=== PATIENT | female | born 2005 | race Caucasian/White ===

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

== ENCOUNTER 2024-05-30 10:36 | Outpatient (POV) | payer OTHER, SELFPAY | END 2024-05-30 23:59 | disposition home or self-care (01) | LOC: SC 10:37 | PROVIDERS: Visit Provider Specialist/Technologist | DX: Z00.00 Encounter for general adult medical examination without abnormal findings (principal) ==

== ENCOUNTER 2024-10-16 10:43 | Outpatient (CLI) | payer OTHER, SELFPAY ==
[2024-10-16 14:07] LABS: Basophils # 0.1 K/mm3 (0-0.2); Basophils % 0.8 % (0.1-2.0); Eosinophils # 0.2 Kmm3 (0.0-0.4); Eosinophils % 2.3 % (0.1-12.0); Hematocrit 43.7 % (37.0-47.0); Immature Granulocytes # 0.01 10^3uL; Immature Granulocytes % 0.2 %; Lymphocytes # 3.1 K/mm3 (0.7-4.5); Lymphocytes % 47.1 % (10-50); Mean Corpuscular HGB Conc 34.3 g/dL (31.8-35.4); Mean Corpuscular Hemoglobin 34.3 pg (27.0-31.2); Mean Platelet Volume 12.5 fl (7.4-10.4); Monocytes # 0.8 K/mm3 (0.1-1.0); Monocytes % 11.5 % (1.7-9.3); Neutrophils # 2.5 K/mm3 (1.8-7.8); Neutrophils % 38.1 % (37.0-80.0); Nucleated Red Blood Cells # 0 10^3/uL; Nucleated Red Blood Cells % 0 %; Platelet Count 194 K/mm3 (142-424); Red Blood Count 4.37 M/mm3 (4.20-5.40); Red Cell Distribution Width 11.9 % (11.5-17.5); Red Cell Distribution Width-SD 43.3 fL; White Blood Count 6.6 K/mm3 (4.5-13.0)
[2024-10-16 15:30] LABS: Albumin Level 4.6 g/dl (3.5-5.0); Chloride 106 mmol/L (98-107); Potassium 4.4 mmoL/L (3.5-5.1); Sodium 138 mmol/L (136-145)
[2024-10-16 15:33] LABS: Alanine Aminotransferase 33 U/L (12-78); Alkaline Phosphatase 88 U/L (38-126); Anion Gap 10.4 mEq/L (5-15); Aspartate Amino Transferase 32 U/L (14-36); Bilirubin,Total 0.5 mg/dl (0.2-1.3); Blood Urea Nitrogen 11 mg/dl (7-17); Carbon Dioxide 26 mmol/L (22.0-30.0); Cholesterol 195 mg/dl (140-200); Estimated Glomerular Filt Rate 107 ml/min (>60); GFR (African American) 129 ML/MIN (>60); Globulin 2.3 g/dL (1.3-3.2); Glucose 91 mg/dl (74-100); Total Protein,Serum 6.9 g/dl (6.3-8.2); Triglycerides 174 mg/dl (30-150); VLDL Cholesterol 35 mg/dL (0-40)
[2024-10-16 15:34] LABS: Calcium 9.7 mg/dl (8.4-10.2); Chol/HDL Ratio 4.9 (1-3.5); HDL Cholesterol 40 mg/dl (40-60); Magnesium 1.8 mg/dl (1.6-2.3)
[2024-10-16 15:43] LABS: 25-OH Vitamin D, Total 40.2 ng/mL (30-100)
[2024-10-16 15:45] LABS: Direct LDL Cholesterol 126.27 mg/dL (100-129)
[2024-10-16 16:06] LABS: Thyroid Stimulating Hormone 2.15 uIU/mL (0.465-4.68)
[2024-10-16 16:10] LABS: Ferritin 18.7 ng/ml (6.24-137)
[2024-10-16 16:23] LABS: Vitamin B12 256 pg/mL (239-931)
[2024-10-16 20:28] LABS: Hemoglobin A1C 5.4 % (4.0-6.0)
[2024-10-17 10:12] LABS: Insulin Level Total 34.7 uIU/mL (2.6-24.9)
== END 2024-10-16 23:59 | disposition home or self-care (01) ==
LOC: LAB.DROPOF 22:51
PROVIDERS: PCP Nurse Practitioner Family; Visit Provider Nurse Practitioner Family
DX: E28.2 Polycystic ovarian syndrome (principal); E53.8 Deficiency of other specified B group vitamins; D50.8 Other iron deficiency anemias; R63.5 Abnormal weight gain; Z68.35 Body mass index [BMI] 35.0-35.9, adult
CPT/HCPCS: 80053; 80061; 82306; 82607; 82728; 83036; 83525; 83735; 84443; 85025

== ENCOUNTER 2024-12-28 18:54 | Outpatient (CLI) | payer OTHER, SELFPAY ==
--- OUTSIDE RECORDS SUMMARY | 2024-12-28 18:59 | XMS_ITS | Clinical Summary ---
Author Organization [facility] Address [address] [place] [id number] Care Team Providers Care Wreath Maker Name Role Phone Raj Fitzgerald M.D. Primary Care Provider [phone] Source Comments [facility] is fully rolled out with thefollowing exceptions:General Clinical Research [facility] Allergies Active Allergy Reactions Criticality Noted Date Comments Apple Rash 02/27/2012 Eggs Or Egg-Derived Products Other 012 Tree Extract Rash 02/27/2012 Tree nuts Medications montelukast (SINGULAIR) 5 MG chewable tablet Take 5 mg by mouth 1 time daily. Active fluticasone propionate (FLONASE) 50 MCG/ACT nasal spray Give 1 [place] into each side of nose 1 time daily. Active Pediatric Multiple Vit-C-FA (CHILDRENS MULTIVITAMIN) WITH C & FA chewable tablet Take 1 Tab by mouth 1 time daily. Active acetaminophen (TYLENOL) 160 MG/5ML suspension Take 19 mL (608 mg total) by mouth every 4 hours as needed for pain or fever (mild). 118 mL 1 3 Active ibuprofen (MOTRIN) 100 MG/5ML suspension Take 20 mL (400 mg total) by mouth every 8 hours as needed for pain (moderate). 240 mL 2 3 Active ciprofloxacin (CILOXAN) 0.3 % ophthalmic solutionIndicat ions:Empiric treatment Use 4 drops two times daily for 7 days to affected ear(s) 1 Bottle 0 3 Active Additional Information Patient not taking.Reported on 10/14/2021 Norethin-Eth Estrad-Fe Biphas (LO LOESTRIN FE PO) Take 1 Tab by mouth 1 time a day. Active Active Problems Problem Noted Date Diagnosed Date Dizziness 12/31/2014 Flow murmur 12/31/2014 Undiagnosed cardiac murmurs 12/30/2014 Obesity 03/13/2014 Attention deficit disorder without mention of hy peractivity 10/26/2012 Normal pubertal progression 05/15/2012 Premature thelarche 02/27/2012 Resolved Problems Problem Noted Date Diagnosed Date Resolved Date Overweight(278.02) 02/27/2012 4 Family History Medical History Relation Name Comments Arthritis, Rheumatoid Father Obstructive Sleep Apnea Father Arrhythmia Maternal Grandfather Arthritis, Rheumatoid Maternal Grandfather Coronary Artery Disease Maternal Grandfather Heart Attack Maternal Grandfather Heart Disease Maternal Grandfather Multip le heart attacks (7 AK's and 17 stents) High Cholesterol Maternal Grandfather Hypertension Maternal Grandfather Hyperthyroidism Maternal Grandfather Hypothyroidism Maternal Grandfather ICD (Defibrillator) Maternal Grandfather Myocardial Infarction Maternal Grandfather 1st AK at age of 35 (7 AK's and 17 stents placed) Pacemaker Maternal Grandfather Arthritis, Rheumatoid Maternal Grandmother Diabetes Type 1 Maternal Grandmother Hypertension Maternal Grandmother Osteoporosis Maternal Grandmother Arthritis, Rheumatoid Mother Heart Block Mother Hypothyroidism Mother Irregular Menses Mother Polycystic Ovary Syndrome Mother Thyroid Disease Mother Crohn's Disease Paternal Aunt Arthritis, Rheumatoid Paternal Grandfather Coronary Artery Disease Paternal Grandfather Heart Attack Paternal Grandfather Heart Disease Paternal Grandfather High Cholesterol Paternal Grandfather Hypertension Paternal Grandfather Myocardial Infarction Paternal Grandfather Arthritis, Rheumatoid Paternal Grandmother Hypertension Paternal Grandmother Mitral valve prolapse Paternal Grandmother Anxiety Sister Kornelia In behavioral m anagement sessions Asthma Sister Kornelia Early Puberty Sister Kornelia Premature adre narche Obstructive Sleep Apnea Sister Kornelia Relation Name Status Comments Father Alive Maternal Grandfather Alive Maternal Grandmother Alive Mother Alive Paternal Aunt Paternal Grandfather (Age 50) He art disease Paternal Grandmother Alive Sister Kornelia Alive Social History Tobacco Use Types Packs/Day Years Used Date Smoking Tobacco: Never Smokeless Tobacco: Never Intimate Partner Violence Answer Date R ecorded If you are in a relationship , do you feel safe in that relationship? Yes 10/14/2021 Safe in relationship? (18 and older) Not on file 10/14/2021 Safety and Environment Answer Date Abdirahman rded Do you have any concerns of physical abuse, sexual abuse, or neglect of your child? No 10/14/2021 Is an adult hurting you or your family? No 10/14/2021 Has someone ever touched you in a sexual way that was not ok with you? No 10/14/2021 Someone hurting you or family (18 and older) Not on file 10/14/2021 Historical abuse worry Not on file If you have firearms in the home, are they all in locked storage AND unloaded? Not on file 10/14/2021 Comments Unknown Sex and Gender Information Value Date Recorded Sex Assigned at Not on file Legal Sex Female 5:38 AM EST Gender Identity Not on file Sexual Orientation Not on file Last Filed Vital Signs Vital Sign Reading Time Taken Comments Blood Pressure 123/69 10/14/2021 10:02 AM EDT Pulse 86 10/14/2021 10:00 AM EDT Temperature 35.8 C (96.4 F) 07/13/2012 4:32 AM EST Respiratory Rate 16 10/14/2021 10:0 0 AM EDT Oxygen Saturation 100% 10/14/2021 10: 00 AM EDT Inhaled Oxygen Concentration - - Weight 84.8 kg (186 lb 15.2 oz) 022 10:00 AM EDT Height 162 cm (5' 3.78 ) 10/14/2021 10: 00 AM EDT Body Mass Index 32.31 10/14/2021 10:00 AM EDT Plan of Treatment Health Maintenance Due Date Last Done Comments HPV IMMUNIZATION (1 - 3-dose series) 02/28/2019 MENINGOCOCCAL B VACCINE (1 of 2 - Standard) 2020 COVID-19 Vaccine (1 - season) 2024 AMB SEASONAL FLU VACCINE (#1) 01/27/2025 DTAP/Tdap/Td IMMUNIZATION (5 - Td or Tdap) 10/02/2028 10/02/2018, 12/04/2009, 03/10/2005, Additional history exists HIB IMMUNIZATION Aged Out 03/10/2005 No longer e ligible based on patient's age to complete this topic IPV IMMUNIZATION Completed 10/02/2018, , 2004 HEPATITIS A IMMUN (OPTIONAL 2-17 YRS) Discontinued 07/16/2019, 10/02/2018 HEPATITIS B IMMUNIZATION Completed 020, 03/10/2005, 2004 MCV4 IMMUNIZATION Aged Out 07/16/2019 No longer eligible based on patient's age to complete this topic MMR IMMUNIZATION Completed 07/16/2019, 10/02/2018 VARICELLA IMMUNIZATION Completed 07/16/2019, 2018 PNEUMOCOCCAL IMMUNIZATION Aged Out No longer eligible based on patient's age to complete this topic Respiratory Syncytial Virus (RSV) <20mo Aged Out No longer eligible based on patient's age to complete this topic Medical Devices Implanted Type [employer] Device Identifier Shelf Expiration Date Model / Serial / Lot Tube [facility] - [id number] Implanted:Qt y: 1 on 07/12/2012 by Manuela Del Toro M.D., Ph.D. at [facility] Otolaryngology Bilater al: Ear GYRUS [employer] 11/26/2021 [id number] / N/A / [id number] [place] [address] [place] [id number] Care Teams Wreath Maker Relationship Specialty Start Date End Date Raj Fitzgerald M.D. [address] [place] [id number] PCP - General External Family Practice 02/02/12
--- OUTSIDE RECORDS SUMMARY | 2024-12-28 18:59 | XMS_ITS | Clinical Summary ---
Author Organization [facility] Address [address] [place] [address] Care Team Providers Care Plasterer Tender Name Role Phone Raj Fitzgerald MD Primary Care Provider [phone] Allergies Active Allergy Reactions Criticality Noted Date Comments Apple Rash Low 02/27/2012 Egg-Derived Products Unknown - Patient states they do not know rxn details Low 02/27/2012 Guaifenesin Rash Medium 04/11/2022 Tree Extract Rash Low 02/27/2012 Tree nuts Tree nuts Tree Nuts Unknown - Patient states they do not know rxn details Low 12/03/2015 Medications EPINEPHrine (Epipen) 0.3 MG/0.3ML injection syringe 12/14/2022 Active glycopyrrolate (Robinul) 1 MG tablet 12/01/2022 Active triamcinolone (Nasacort) 55 MCG/ACT nasal inhaler 12/14/2022 Active Pediatric Multiple Vitamins (Animal Shapes) chewable tablet Chew 1 tablet 1 (one) time each day. Active rizatriptan (Maxalt) 5 MG tablet 03/28/2022 Active ProFe 391.3 (180 Fe) MG capsule 08/18/2022 Acti ve tretinoin (Retin-A) 0.1 % cream 12/01/2022 Active spironolactone (Aldactone) 25 MG tablet 12/01/2022 Active norethindrone-et hinyl estradiol (Junel FE 06/17) 1-20 MG-MCG tablet 08/23/2022 Active nortriptyline (Pamelor) 10 MG capsule 05/05/2022 Active amphetamine-dext roamphetamine (Adderall) 5 MG tablet 12/01/2022 Active Active Problems No known active problems Family History Medical History Relation Name Comments Cataracts Other Mitral valve prolapse Paternal Grandmother Relation Name Status Comments Other Paternal Grandmother Social History Tobacco Use Types Packs/Day Years Used Date Smoking Tobacco: Never Smokeless Tobacco: Never Tobacco Cessation:Counseling Given: Not Answered Comments Unknown Sex and Gender Information Value Date Recorded Sex Assigned at Not on file Legal Sex Female 8:38 PM EDT Gender Identity Not on file Sexual Orientation Not on file Last Filed Vital Signs Vital Sign Reading Time Taken Comments Blood Pressure 122/72 03/10/2023 1:54 PM EDT Pulse 79 03/10/2023 1:54 PM EDT Temperature 36.4 C (97.5 F) 03/10/2023 1:04 PM EDT Respiratory Rate 18 03/10/2023 1:54 PM EDT Oxygen Saturation 99% 03/10/2023 1:54 PM EDT Inhaled Oxygen Concentration - - Weight 81.6 kg (180 lb) 01/19/2023 1:51 PM EDT Height 162.6 cm (5' 4 ) 01/19/2023 1:51 PM EDT Body Mass Index 30.9 01/19/2023 1:51 PM EDT Plan of Treatment Health Maintenance Due Date Last Done Comments [facility]-Depression Screening 2004 [facility]-HIV Screening 2004 [facility]-Hepatitis C Screening 2004 [facility]-Infant/Child/Adol SDOH Screenings 2004 HPV Vaccines (1 - 3-dose series) 02/28/2019 [facility]- SDOH Screenings 02/28/2022 [facility]-Adult SDOH Screenings 02/28/2022 [id number] Vaccine ( - season) 2024 [facility]-Influenza Vaccine (#1) 2025 [facility]-DTaP,Tdap,and Td Vaccines (5 - Td or Tdap) 10/02/2028 10/02/2018, 12/04/2009, 03/10/2005, Additional history exists [facility]-Zoster Vaccines (1 of 2) 02/28/2054 07/16/2019, 10/02/2018 [facility]-HIB Vaccines Aged Out 03/10/2005 No longer e ligible based on patient's age to complete this topic [facility]-IPV Vaccines Completed 10/02/2018, , 2004 [facility]-Hepatitis A Vaccines Completed 07/16/2019, 11/2018 [facility]-Hepatitis B Vaccines Completed 020, 03/10/2005, 2004 [facility]-Varicella Vaccines Completed 07/16/2019, 2018 [facility]-Obesity Intervention Completed 023, 01/16/2023, 12/12/2022 [facility]-Pneumococcal Vaccine: Pediatrics (0 to 5 Years) and At-Risk Patients (6 to 49 Years) Aged Out No longer eligible based on patient's age to complete this topic [facility]-Rotavirus Vaccines Aged Out No lo nger eligible based on patient's age to complete this topic Insurance [place] [id number] [facility] Care Teams Plasterer Tender Relationship Specialty Start Date End Date Raj Fitzgerald MD [address] [place] [address] [address] [place] [id number] PCP - General 10/09/20
--- OUTSIDE RECORDS SUMMARY | 2024-12-28 18:59 | XMS_ITS | Clinical Summary ---
Author Organization [facility] Address [address] [place] [address] Care Team Providers Care Foreign Exchange Position Clerk Name Role Phone Raj Fitzgerald MD Primary Care Provider [phone] Allergies Active Allergy Reactions Criticality Noted Date Comments Apple Rash Low 02/27/2012 Egg-Derived Products Other (See Comments) 02/26 Tree Extract Rash Low 02/27/2012 Tree nuts Medications norethindrone-ethi nyl estradiol FE (06/17) 1-20 MG-MCG per tablet 08/23/2022 Active ProFe 391.3 (180 Fe) MG capsule 08/18/2022 Acti ve Active Problems No known active problems Family History Medical History Relation Name Comments No Known Problems Brother Heart disease Father Heart attack Maternal Grandfather Heart disease Mother Heart attack Paternal Grandfather Mitral valve prolapse Paternal Grandmother Polycystic ovary syndrome Sister Rheumatologic disease Sister Relation Name Status Comments Brother Alive Father Alive Maternal Grandfather Alive Maternal Grandmother Alive Mother Alive Paternal Grandfather Alive Paternal Grandmother Alive Sister Alive Social History Tobacco Use Types Packs/Day Years Used Date Smoking Tobacco: Never Passive Smoke Exposure: Past Smokeless Tobacco: Never Tobacco Cessation:Counseling Given: Not Answered Alcohol Use Standard Drinks/Week Comments Never 0 (1 standard drink = 0.6 oz pur e alcohol) Abuse Screen Answer Date Recorded Unsafe at Home or Work/School Not on file Feels Threatened by Someone? Not on file 01/2023 Does Anyone Keep You from Co ntacting Others or Doint Things Outside the Home? Not on file 03/06/2023 Physical Sign of Abuse Present Not on file 1 Housing Stability Answer Date Recorded Current Living Arrangements Not on file 01/2023 Potentially Unsafe Housing Conditions Not on too e 03/06/2023 Family and Community Support Answer Tom e Recorded Help with Day-to-Day Activities Not on file 03/06/2023 Lonely or Isolated Not on file 03/06/2023 Employment Answer Date Recorded Do you want help finding or keeping work or a sherman b? Not on file 03/06/2023 Disabilities Answer Date Recorded Concentrating, Remembering, or Making Decisions Difficulty Not on file 03/06/2023 Doing Errands Independently Difficulty Not on fi le 03/06/2023 Education Answer Date Recorded Help with school or training? Not on file Preferred Language Not on file 03/06/2023 Comments Unknown Sex and Gender Information Value Date Recorded Sex Assigned at Not on file Legal Sex Female 12:14 PM EDT Gender Identity Not on file Sexual Orientation Not on file Last Filed Vital Signs Vital Sign Reading Time Taken Comments Blood Pressure 96/58 01/16/2023 3:25 PM EDT Pulse 67 01/16/2023 3:25 PM EDT Temperature 36.3 C (97.4 F) 10/07/2022 9:04 AM EDT Respiratory Rate 16 10/07/2022 9:04 AM EDT Oxygen Saturation 100% 10/07/2022 9:04 AM EDT ra Inhaled Oxygen Concentration - - Weight 81.6 kg (180 lb) 01/16/2023 2:27 PM EDT Height 165.1 cm (5' 5 ) 01/16/2023 2:27 PM EDT Body Mass Index 29.95 01/16/2023 2:27 PM EDT Plan of Treatment Health Maintenance Due Date Last Done Comments HPV VACCINES (1 - 3-dose series) 02/28/2019 MENINGOCOCCAL B VACCINE (1 o f 2 - Standard) 2020 ANNUAL PHYSICAL 08/26/2022 HEPATITIS C SCREENING 08/26/2022 COVID-19 Vaccine (1 - 2023-2 5 season) 2024 INFLUENZA VACCINE 02/26/2025 TDAP/TD VACCINES (2 - Td or Tdap) 10/02/2028 019 MENINGOCOCCAL VACCINE Aged Out 07/16/2019 No felix eyal eligible based on patient's age to complete this topic Pneumococcal Vaccine 0-49 Aged Out No longer eligible based on patient's age to complete this topic Insurance [facility] Care Teams Foreign Exchange Position Clerk Relationship Specialty Start Date End Date Raj Fitzgerald MD [address] [place] [address] PCP - General Family Medicine 08/26/22
--- NOTE | 2024-12-28 19:08 | XR_ITS ---
PROCEDURE INFORMATION: Exam: XR Left Knee Exam date and time: 12/28/2024 7:00 PM Age: 19 years old Clinical indication: Injury or trauma; Fall; Other: Fell on knee while playing volleyball; PT complains of aching when walking TECHNIQUE: Imaging protocol: Radiologic exam of the left knee. Views: 3 views. COMPARISON: MR KNEE LT WO CON 04/15/2021 11:22 AM FINDINGS: Bones/joints: Normal. Soft tissues: Normal. IMPRESSION: No acute findings.
== END 2024-12-28 23:59 | disposition home or self-care (01) ==
LOC: RAD 18:58
PROVIDERS: PCP Nurse Practitioner Family; Visit Provider Nurse Practitioner Family
DX: S89.92XA Unspecified injury of left lower leg, initial encounter (principal); Y93.68 Activity, volleyball (beach) (court)
CPT/HCPCS: 73562

== ENCOUNTER 2025-01-09 07:32 | Outpatient (CLI) | payer OTHER, SELFPAY ==
--- OUTSIDE RECORDS SUMMARY | 2025-01-09 07:35 | XMS_ITS | Patient Health Record ---
Author Organization [facility] Address [address] [facility] [address] [place] [address] Care Team Providers Care Mold Insert Changer Name Role Phone Debbie Maharaj Unavailable [phone] Reason For Referral No Information Social History Social History Additional Details Category Social Info Options Details Miscellaneous: Sexually active: SEXUAL AC TIV: Never Problems Problem Type SNOMED Code ICD Code Onset Dates Problem Status W/U Status Risk Notes Problem Surveillance of oral contraception done (28721586099775 8) Encounter for control pills maintenance (Z30.41) 020 Active confirmed Encounter for surveillance of contraceptive pill Problem Hypertrophy of breast (952461375) Atypical ductal hyperplasia of both breasts (N62) 021 Active confirmed Gigantomastia Problem 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) 020 Active confirmed HIRSUTISM Problem Polycystic bilateral ovaries (disorder) (987902475) Bilateral polycystic ovarian syndrome (E28.2) 021 Active confirmed Polycystic ovarian disease Problem Gynecological examination abnormal (66055616598174 3) *Vocational Education Professional exam with abnormal finding (Code also - abnormal finding(s) (Z01.411) 020 Active confirmed Annual with abnormal findings Problem Gynecological examination normal (95626064257994 4) Cervical smear, as part of routine gynecological examination (Z01.419) 021 Active confirmed Annual without abnormal findings Plan Of Treatment No Information Medical (General) History Medical History History ICD Code anxiety asthma depression IBS PCOS precocious puberty Juvenile Rheumatoid Arthritis spironolactone 25 mg tablet, BY MOUTH Singulair [place]ovi Fe 06/17 (28) 1 mg-20 mcg (21)/75 mg (7) tablet, BY MOUTH Surgical History Surgery Date(Month/Year) ankle 2019 tonsillectomy 2012
--- OUTSIDE RECORDS SUMMARY | 2025-01-09 07:35 | XMS_ITS | Clinical Summary ---
Author Organization [facility] Address [address] [id number] Care Team Providers Care Supervisor Pipelines Name Role Phone Raj Fitzgerald MD Primary Care Provider [phone] Allergies Active Allergy Reactions Criticality Noted Date [...] patient's age to complete this topic Insurance [facility] Care Teams Supervisor Pipelines Relationship Specialty Start Date End Date Raj Fitzgerald MD [address] [place] [address] PCP - General Family Medicine 08/26/22
--- OUTSIDE RECORDS SUMMARY | 2025-01-09 07:35 | XMS_ITS | Clinical Summary ---
Author Organization [facility] Address [address] [place] [address] Care Team Providers Care Street Roller Engineer Name Role Phone Raj Fitzgerald MD Primary Care Provider [phone] Allergies Active Allergy Reactions Criticality Noted Date [...] SDOH Screenings 02/28/2022 [facility]-Adult SDOH Screenings 02/28/2022 [id number] Vaccine ( - season) 2024 [facility]-Influenza Vaccine [...] to complete this topic Insurance [place] [id number] [facility] MEDICAID Care Teams Street Roller Engineer Relationship Specialty Start Date End Date Raj Fitzgerald MD [address] [place] [address] [address] [place] [id number] PCP - General 10/09/20
--- OUTSIDE RECORDS SUMMARY | 2025-01-09 07:35 | XMS_ITS | Clinical Summary ---
Author Organization [facility] Address [address] [place] [address] Care Team Providers Care Usps Letter Carrier Name Role Phone Raj Fitzgerald M.D. Primary Care Provider [phone] Source Comments [facility] is fully rolled out with thefollowing exceptions:General Clinical Research [facility] Allergies Active Allergy Reactions Criticality Noted Date Comments Apple Rash 02/27/2012 Eggs Or Egg-Derived Products Other 012 Tree Extract Rash 02/27/2012 Tree nuts Medications montelukast (SINGULAIR) 5 MG chewable tablet Take 5 mg by mouth 1 time daily. Active fluticasone propionate (FLONASE) 50 MCG/ACT nasal spray Give 1 Point Clear into each side of nose 1 time [...] Maternal Grandfather Multip le heart attacks (7 TN's and 17 stents) High Cholesterol Maternal Grandfather Hypertension Maternal Grandfather Hyperthyroidism Maternal Grandfather Hypothyroidism Maternal Grandfather ICD (Defibrillator) Maternal Grandfather Myocardial Infarction Maternal Grandfather 1st TN at age of 35 (7 TN's and 17 stents placed) Pacemaker Maternal Grandfather [...] season) 2024 AMB SEASONAL FLU VACCINE (#1) 03/29/2025 DTAP/Tdap/Td IMMUNIZATION (5 - Td or Tdap) [...] this topic Medical Devices Implanted Type Area Machinist Linotype Device Identifier Shelf Expiration Date Model / Serial / Lot Tube [facility] - [id number] Implanted:Qt y: 1 on 07/12/2012 by Manuela Del Toro M.D., Ph.D. at [facility] Otolaryngology Bilater al: Ear [employer] 11/26/2021 [id number] / N/A / [id number] [place] [address] [place] [address] Care Teams Usps Letter Carrier Relationship Specialty Start Date End Date Raj Fitzgerald M.D. [address] [place] [id number] PCP - General External Family Practice 02/02/12
--- NOTE | 2025-01-09 07:40 | MR_ITS ---
FINAL REPORT TECHNIQUE: Multiplanar and multisequence imaging the left knee was obtained without contrast. CLINICAL HISTORY: LEFT KNEE PAIN. medial sided knee pain since twisting knee 3 weeks ago. COMPARISON: None FINDINGS: Bones: Bone marrow edema is present in the medial patella and the lateral femoral condyle, in a pattern consistent with transient patellar dislocation. No fracture is identified. The joint space is preserved. There are no full thickness cartilage defects. Menisci: There is a possible ramp tear of the posterior horn of the medial meniscus. Ligaments: No cruciate or collateral ligament tear is present. There is a partial tear of the medial patellofemoral ligament at the patellar attachment. Tendons/Muscles: The quadriceps and patellar tendons are within normal limits. The biceps femoris tendon and iliotibial tract are intact. The popliteus tendon is normal. Other: A small joint effusion is present. There is a multilobular cystic lesion anterior to the anterior horn of the lateral meniscus, measuring 18 mm in size, without definite communication with the adjacent meniscus. A definite tear of the anterior horn of the lateral meniscus is not identified. This may represent a synovial cyst, parameniscal cyst felt to be less likely. IMPRESSION: Medial patellar and lateral femoral condyle bone marrow edema, in a pattern consistent with transient patellar dislocation. No definite fracture is identified. Positioning of the patella on this examination is normal. Partial tear of the medial patellofemoral ligament at the patellar attachment. Possible ramp tear of the posterior horn of the medial meniscus. Multilobular cystic lesion anterior to the anterior horn of the lateral meniscus does not appear to communicate with the meniscus itself. This may represent a synovial cyst, with a parameniscal cyst less likely. Reviewed, Interpreted and Dictated by Aileen Reyez MD Transcribed by Corinna Nazario Authenticated and [facility]
== END 2025-01-09 23:59 | disposition home or self-care (01) ==
LOC: RAD 07:33
PROVIDERS: PCP Nurse Practitioner Family; Visit Provider Physician Assistant
DX: S76.112A Strain of left quadriceps muscle, fascia and tendon, initial encounter (principal); M25.862 Other specified joint disorders, left knee; R93.6 Abnormal findings on diagnostic imaging of limbs
CPT/HCPCS: 73721